=== PATIENT | male | born 1950 | race Caucasian/White ===

== ENCOUNTER 2016-09-18 21:11 | Emergency (ER) | payer MEDICARE, BC ==
[~2016-09-18 21:11] MED LIST: ASA CHILDREN'S81 MG PO; CELEBREX200 MG PO; COREG25 MG PO; LASIX40 MG PO; LIPITOR20 MG PO; MICRO-K DPS10 MEQ PO; NORVASC10 MG PO; SENOKOT8.6 MG PO; THERA1 EACH PO; ULTRAM50 MG PO; XARELTO10 MG PO; ZESTRIL40 MG PO
--- NOTE | 2016-09-21 19:10 | ER ---
ADMIT: 09/18/2016 RM/LOC: ER [facility] MR#: [id number] [place], [place] [id number] JOSHUA VELAZQUEZ [address] [place], [place] [id number] Emergency Room Report SEX: M AGE: 65 : 1950 DATE: 09/18/2016 HISTORY OF PRESENT ILLNESS: The patient is a 65-year-old male with a past medical history of liver and colon cancer, CHF, hypertension, status post colon resection, who is receiving chemotherapy at the moment. The next session will be on Tuesday, came to the ER with chief complaint of left anterior chest pain which was started at 5 p.m. while the patient was starting. Pain is sharp and increases with palpation of the left anterior chest and is not related to exertion. The patient denies similar pain in the past. The patient has baseline mild shortness of breath, which has not changed. There is no radiation of the pain. The patient also denies any diaphoresis. PHYSICAL EXAMINATION: VITAL SIGNS: The patient was hypertensive with systolic blood pressure of 197 and with a heart rate of 88, and respiratory rate 18, and the patient was afebrile with he temperature of 99.4. GENERAL: The patient was in mild distress. The patient was alert and oriented. HEAD AND NECK: There is no murmur radiating to the neck and there is no bruit on the neck. Trachea is midline. LUNGS: Bilateral equal breath sounds. HEART: Normal S1, S2 without any murmurs or gallops. ABDOMEN: Soft. The patient has mild to moderate left anterior chest tenderness, which increases with palpation and the patient states that this is the very same pain that he came to the ER for. EXTREMITIES: There is no swelling of the extremities and the Homans' sign is negative and there is no calf tenderness. NEURO: Grossly normal. EMERGENCY DEPARTMENT COURSE: The patient received aspirin in the ER. The patient received 3 doses of nitroglycerin sublingual, which did not change the pain at all, but decreased the blood pressure systolic to 140 over 80. The patient received GI cocktail, which per patient substantially decreased the pain. EKG on the first arrival did not show any ST or T changes or arrhythmia or Q-waves. Troponin I was negative. D-dimer was mildly elevated to 0.9, which was very similar to the D-dimer in 2012, concerning the patient has colon and liver cancer. X-ray showed chronic nodules on the left lung and ADMIT: 09/18/2016 RM/LOC: ER [facility] MR#: [id number] [address] [id number] JOSHUA VELAZQUEZ [address] [place] [address] Emergency Room Report SEX: M AGE: 65 : 1950 some questionable opacity on the right lung, and at this stage, concerning the patient is not tachycardic, not tachypneic, O2 saturation is 95%-96%, which was similar to previous visit and the patient's chest pain is more chest wall pain, and has a history of cancer. At this stage, I do not believe D-dimer is reflective of pulmonary emboli, but still the case was discussed with the patient, and the patient was informed that there is a slim chance of the clot. At this stage, patient prefer not to have a CT scan for x-ray radiation. The patient is symptom-free and at his baseline. PLAN: The patient can be discharged to home with return precautions. Follow up with the primary doctor, and follow up with the Oncology Clinic as scheduled. Dominick Barger MD/ tacho JOB #: [id number] CC: Scar Monet MD, Attending Physician Thierry Leija MD, Family Physician
== END 2016-09-18 23:05 | disposition home or self-care (01) ==
LOC: ER 21:11
DX: R07.9 Chest pain, unspecified (principal); I11.0 Hypertensive heart disease with heart failure; I50.9 Heart failure, unspecified; Z79.899 Other long term (current) drug therapy; Z79.82 Long term (current) use of aspirin